=== PATIENT | female | born 1980 | race Two or more races ===

== ENCOUNTER 2021-11-09 11:47 | Emergency (ER) | payer BC, OTHER ==
[~2021-11-09] VITALS: Ht 157.5 cm; Wt 117.9 kg
[2021-11-09] MEDS ORDERED: IBUP800T27 PO (12:47)
[2021-11-09] MEDS ORDERED: METH750T22 PO (12:47)
[2021-11-09 13:04] VITALS: BP 185/104
== END 2021-11-09 13:11 | disposition home or self-care (01) ==
LOC: ER 11:47
DX: S39.012A Strain of muscle, fascia and tendon of lower back, initial encounter (principal); V43.52XA Car driver injured in collision with other type car in traffic accident, initial encounter; Y93.89 Activity, other specified; Y92.410 Unspecified street and highway as the place of occurrence of the external cause; Y99.8 Other external cause status
CPT/HCPCS: 72100